=== PATIENT | male | born 1990 | race Caucasian/White ===

== ENCOUNTER 2021-06-22 22:14 | Emergency (ER) | payer MEDICAID, SELFPAY ==
[2021-06-22 22:32] VITALS: BP 128/84; PULSE 81; RESP 18; TEMP 36.8; O2SAT 99; BMI 20.9
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
== END 2021-06-22 23:51 | disposition home or self-care (01) ==
PROVIDERS: Emergency Provider Internal Medicine
DX: K12.2 Cellulitis and abscess of mouth (principal); Z79.899 Other long term (current) drug therapy
CPT/HCPCS: 99283